=== PATIENT | female | born 1980 | race Caucasian/White ===

== ENCOUNTER 2017-05-10 11:18 | Emergency (ER) | payer OTHER | END 2017-05-10 13:25 | disposition home or self-care (01) | LOC: E/R 11:18 | DX: R05 Cough (principal) | CPT/HCPCS: 99284 ==

== ENCOUNTER 2017-05-24 09:44 | Emergency (ER) | payer OTHER | END 2017-05-24 10:30 | disposition home or self-care (01) | LOC: E/R 09:44 | DX: H65.02 Acute serous otitis media, left ear (principal); R05 Cough | CPT/HCPCS: 99283; Z7502 ==